=== PATIENT | male | born 1970 | race Caucasian/White ===

== ENCOUNTER 2020-05-19 17:41 | Observation (INO) ==
[2020-05-19 18:30] LABS: Basophils % 0.3 %; Eosinophils # 0.3 K/mcL (0.0-0.6); Eosinophils % 3.1 %; Hematocrit 43.4 % (37.5-50.1); Hemoglobin 14.1 g/dL (12.9-16.9); Lymphocytes # 2.1 K/mcL (0.6-4.6); Lymphocytes % 22.7 %; Mean Corpuscular HGB Conc 32.5 g/dL (31.6-35.5); Mean Corpuscular Hemoglobin 28.6 pg (28.0-33.3); Monocytes # 0.6 K/mcL (0.0-1.3); Monocytes % 6.5 %; Platelet Count 276 K/mcL (140-400); Red Blood Count 4.93 M/mcL (4.19-5.50); Red Cell Distribution Width 14.2 % (11.5-14.5); Segmented Neutrophils % 66.4 %; White Blood Count 9.1 K/mcL (4.3-11.1)
[2020-05-19 18:37] LABS: Calcium 9.2 mg/dL (8.6-10.3); Potassium 4.5 mEq/L (3.5-5.1)
[2020-05-19 18:43] LABS: Troponin I 0.07 ng/mL (< 0.04)
[2020-05-19] MEDS ORDERED: 0.9 % Sodium Chloride 1,000 ML IVC ONE (18:44)
[2020-05-19 20:27] LABS: Adenovirus Not Detected (Not Detect); Bordetella Pertussis Not Detected (Not Detect); Chlamydophila pneumoniae Not Detected (Not Detect); Coronavirus 229E Not Detected (Not Detect); Coronavirus HKU1 Not Detected (Not Detect); Coronavirus NL63 Not Detected (Not Detect); Coronavirus OC43 Not Detected (Not Detect); Human Metapneumovirus Not Detected (Not Detect); Human Rhinovirus/Enterovirus Not Detected (Not Detect); Influenza A Subtype 2009 H1 Not Detected (Not Detect); Influenza B Not Detected (Not Detect); Mycoplasma pneumoniae Not Detected (Not Detect); Parainfluenza Virus 1 Not Detected (Not Detect); Parainfluenza Virus 2 Not Detected (Not Detect); Parainfluenza Virus 3 Not Detected (Not Detect); Parainfluenza Virus 4 Not Detected (Not Detect); Respiratory Syncytial Virus Not Detected (Not Detect)
[2020-05-19 20:30] LABS: Bilirubin,Urine Negative (Negative); Blood,Urine Negative (Negative); Clarity,Urine Clear (Clear); Color,Urine Light-Yellow (Yellow); Glucose,Urine (UA) 500 mg/dL (Normal); Hyaline Casts,Urine Few per lpf (None Seen); Ketones,Urine Negative (Negative); Leukocyte Esterase,Urine Negative (Negative); Mucus,Urine Few per lpf (None-Few); Nitrite,Urine Negative (Negative); PH,Urine 6.5 pH Units (5.0-8.0); Protein,Urine 70 mg/dL (Neg-Trace); RBC,Urine 0-3 per hpf (0-3); Specific Gravity,Urine 1.018 (1.010-1.025); Squamous Epithelial Cell,Urine Few per hpf (None-Few); Urobilinogen,Urine Normal (Normal); WBC,Urine 0-3 per hpf (0-3)
[2020-05-19] MEDS ORDERED: Naloxone 0.4 MG/ML INJ IVP PRN (21:18)
[2020-05-19] MEDS ORDERED: Acetaminophen 325 MG TABLET PO PRN (21:18)
[2020-05-19] MEDS ORDERED: Dextrose Gel 15 GM/37.5 ML TUBE PO PRN ×2 (21:43)
[2020-05-19] MEDS ORDERED: *HR* Dextrose 50 % in Water (Vial) 50 ML VIAL IVP PRN (21:43)
[2020-05-19] MEDS ORDERED: D5% in Water 1,000 ML IVC PRN (21:43)
[2020-05-19 21:54] LABS: Protein/Creatinine Ratio,Urine 0.5 mg/mg (0.00-0.20); Sodium, Urine 87.8 mEq/L
[2020-05-19] MEDS ORDERED: 0.9 % Sodium Chloride 1,000 ML IVC SCH (22:00)
[2020-05-19] MEDS ORDERED: Perflutren Lipid Microsphere 1.3 ML in 0.9 % Sodium Chloride 8.7 ML IVP PRN (22:23)
[2020-05-19] MEDS ORDERED: carvediloL 6.25 MG TABLET PO ONE (22:25)
[2020-05-19] MEDS: Divalproex (12 HR) 250 MG TABLET PO SCH (23:14)
[2020-05-19] MEDS: *HR* LORazepam 1 MG TABLET PO PRN (23:14)
[2020-05-20 00:37] LABS: Basophils # 0.1 K/mcL (0.0-0.2); Basophils % 0.5 %; Eosinophils # 0.3 K/mcL (0.0-0.6); Eosinophils % 2.9 %; Hematocrit 42.9 % (37.5-50.1); Hemoglobin 14.3 g/dL (12.9-16.9); Immature Granulocytes % 0.8 % (0-4); Lymphocytes # 2.7 K/mcL (0.6-4.6); Lymphocytes % 25.2 %; Mean Corpuscular HGB Conc 33.3 g/dL (31.6-35.5); Mean Corpuscular Hemoglobin 29.3 pg (28.0-33.3); Mean Corpuscular Volume 87.9 fL (83.0-100.0); Mean Platelet Volume 9.8 fL (9.4-12.4); Monocytes # 0.5 K/mcL (0.0-1.3); Monocytes % 5.1 %; Neutrophils # 6.9 K/mcL (1.6-8.9); Platelet Count 266 K/mcL (140-400); Red Blood Count 4.88 M/mcL (4.19-5.50); Red Cell Distribution Width 14.3 % (11.5-14.5); Segmented Neutrophils % 65.5 %; White Blood Count 10.6 K/mcL (4.3-11.1)
[2020-05-20 00:52] LABS: Calcium 8.7 mg/dL (8.6-10.3); Chol/HDL Ratio 4.8 (0-4.9); Potassium 4.4 mEq/L (3.5-5.1)
[2020-05-20] MEDS: Insulin LISPRO 300 UNITS/3 ML VIAL SQ SCH ×4 (01:10→16:13)
[2020-05-20 02:30] LABS: Estimated Average Glucose 180 mg/dl
[2020-05-20] MEDS ORDERED: *HR* Heparin 5,000 UNIT/ML VIAL IVP ONE (06:56)
[2020-05-20] MEDS ORDERED: *HR* Heparin 5,000 UNIT/ML VIAL IVP PRN ×2 (06:56)
[2020-05-20 07:34] LABS: Activated Partial Thrombo Time 31.3 Seconds (26.0-36.0); Prothrombin Time 11.7 Seconds (9.4-12.1)
[2020-05-20] MEDS ORDERED: carvediloL 6.25 MG TABLET PO SCH (08:00)
[2020-05-20] MEDS: Divalproex (12 HR) 250 MG TABLET PO SCH ×3 (08:24→20:53)
[2020-05-20] MEDS: ARIPiprazole 10 MG TABLET PO SCH (08:24)
[2020-05-20] MEDS: Heparin 25,000UNIT/250ML 1/2NS 25,000 UNIT/250 ML IV.SOLN IVC SCH (08:28)
[2020-05-20] MEDS ORDERED: NON-FORMULARY MEDICATION 1 EACH EACH (Ipratropium/Albuterol Sulfate 4 GM) IH SCH (09:00)
[2020-05-20] MEDS ORDERED: Divalproex (12 HR) 250 MG TABLET PO SCH (09:00)
[2020-05-20] MEDS ORDERED: 0.9 % Sodium Chloride 1,000 ML IVC SCH ×2 (09:45→20:30)
[2020-05-20] MEDS ORDERED: Levalbuterol Neb 1.25 MG/3 ML IH PRN (10:40)
[2020-05-20] MEDS ORDERED: carvediloL 6.25 MG TABLET PO ONE ×2 (10:58→22:25)
[2020-05-20] MEDS ORDERED: Regadenoson 0.4 MG/5 ML SYRINGE IVP ONE (11:01)
[2020-05-20] MEDS: carvediloL 6.25 MG TABLET PO SCH ×2 (14:48→16:25)
[2020-05-20] MEDS: *HR* LORazepam 1 MG TABLET PO PRN (20:53)
[2020-05-21 00:59] LABS: BUN/Creatinine Ratio 14 (6-26); Blood Urea Nitrogen 18 mg/dL (6-20); Calcium 8.6 mg/dL (8.6-10.3); Carbon Dioxide 26 mEq/L (23-29); Chloride 104 mEq/L (98-107); Glucose 193 mg/dL (70-105); Magnesium 1.3 mg/dL (1.6-2.6); Osmolality,Calculated 291 (280-300); Phosphorous 2.7 mg/dL (2.7-4.5); Potassium 4.5 mEq/L (3.5-5.1); Sodium 137 mEq/L (136-145); eGFR For African Americans > 60 (> 60); eGFR For Non-African Americans > 60 (> 60)
[2020-05-21] MEDS: Insulin LISPRO 300 UNITS/3 ML VIAL SQ SCH ×3 (05:21→16:38)
[2020-05-21] MEDS: Heparin 25,000UNIT/250ML 1/2NS 25,000 UNIT/250 ML IV.SOLN IVC SCH (08:20)
[2020-05-21] MEDS: Divalproex (12 HR) 250 MG TABLET PO SCH ×2 (08:21→14:04)
[2020-05-21] MEDS: ARIPiprazole 10 MG TABLET PO SCH (08:21)
[2020-05-21] MEDS: carvediloL 6.25 MG TABLET PO SCH ×2 (08:21→16:38)
[2020-05-21 08:32] LABS: Basophils # 0.1 K/mcL (0.0-0.2); Basophils % 0.6 %; Eosinophils # 0.4 K/mcL (0.0-0.6); Eosinophils % 4.8 %; Hematocrit 40.1 % (37.5-50.1); Hemoglobin 13.1 g/dL (12.9-16.9); Immature Granulocytes % 0.6 % (0-4); Lymphocytes # 2.5 K/mcL (0.6-4.6); Lymphocytes % 28.1 %; Mean Corpuscular HGB Conc 32.7 g/dL (31.6-35.5); Mean Corpuscular Hemoglobin 28.9 pg (28.0-33.3); Mean Corpuscular Volume 88.3 fL (83.0-100.0); Mean Platelet Volume 9.5 fL (9.4-12.4); Monocytes # 0.5 K/mcL (0.0-1.3); Monocytes % 5.6 %; Neutrophils # 5.3 K/mcL (1.6-8.9); Platelet Count 227 K/mcL (140-400); Red Blood Count 4.54 M/mcL (4.19-5.50); Red Cell Distribution Width 14.3 % (11.5-14.5); Segmented Neutrophils % 60.3 %; White Blood Count 8.7 K/mcL (4.3-11.1)
[2020-05-21 08:39] LABS: BUN/Creatinine Ratio 14 (6-26); Blood Urea Nitrogen 17 mg/dL (6-20); Calcium 8.7 mg/dL (8.6-10.3); Carbon Dioxide 25 mEq/L (23-29); Chloride 106 mEq/L (98-107); Glucose 165 mg/dL (70-105); Osmolality,Calculated 289 (280-300); Potassium 4.2 mEq/L (3.5-5.1); Sodium 137 mEq/L (136-145); eGFR For African Americans > 60 (> 60); eGFR For Non-African Americans > 60 (> 60)
[2020-05-21] MEDS ORDERED: Aspirin 81 MG TAB.CHEW PO SCH (09:00)
[2020-05-21] MEDS: Magnesium Sulfate 1 GM/102 ML PIGGYBACK IVPB SCH ×3 (09:39→13:21)
[2020-05-21] MEDS ORDERED: *HR* Heparin 10,000 UNIT/10 ML VIAL ONE (10:36)
[2020-05-21] MEDS ORDERED: *HR* FentaNYL (PF) 100 MCG/2 ML VIAL ONE (10:36)
[2020-05-21] MEDS ORDERED: *HR* Midazolam HCl 2 MG/2 ML VIAL ONE (10:36)
[2020-05-21] MEDS ORDERED: 0.9 % Sodium Chloride 2,000 ML ONE (10:36)
[2020-05-21] MEDS ORDERED: Heparin 1,000 UNITS/500 mL 500 ML ONE (10:36)
[2020-05-21] MEDS ORDERED: ISOVUE-370 200 ML INFUS..BTL ONE (10:37)
[2020-05-21] MEDS ORDERED: Nitroglycerin 1,000 MCG/10 ML VIAL IV ONE (10:37)
[2020-05-21 12:35] LABS: Magnesium 1.2 mg/dL (1.6-2.6)
[2020-05-21] MEDS ORDERED: Furosemide 20 MG TABLET PO SCH (13:58)
[2020-05-21 14:07] VITALS: BP 130/86
[2020-05-22] MEDS ORDERED: Furosemide 20 MG TABLET PO SCH (09:00)
[2020-05-22 16:32] LABS: Kappa Qnt Free Light Chains 27.41 mg/L (3.30-19.40); Lambda Qnt Free Light Chains 27.59 mg/L (5.71-26.30)
== END 2020-05-21 18:30 | disposition home or self-care (01) ==
LOC: EMEROOARM 17:41 → 3BNU 17:41 → SUATTDRO 20:44 → 3BNU 21:43
PROVIDERS: ADMIT Internal Medicine; ATTEND Internal Medicine